=== PATIENT | female | born 1975 | race African-American/Black ===

== ENCOUNTER 2018-07-05 15:18 | Outpatient (CLI) | payer MEDICAID ==
--- NOTE | 2018-07-05 16:17 | MMO ---
BILATERAL SCREENING MAMMOGRAM: HISTORY: A 42-year-old female. Routine screening mammography. COMPARISON: 05/22/2017 TECHNIQUE: CC and MLO views of both breasts were submitted for interpretation. This patient's mammogram is revi ewed with the assistance of computer aided detection. FINDINGS: The breasts are composed of heterogeneously dense fibroglandular tissue, which limits the sensitivity of mammography in the detection of underlying malignancy. Bilaterally, no suspicious dominant mass, architectural distortion, or suspicious calcification. IMPRESSION: BI-RADS Category 1-Negative exam. RECOMMENDATIONS: Annual mammogram. POS: [facility]RI[facility]
== END 2018-07-05 15:19 | disposition home or self-care (01) ==
LOC: SCSMAMMO 15:18
PROVIDERS: ATTEND Nurse Practitioner Women's Health
DX: Z12.31 Encounter for screening mammogram for malignant neoplasm of breast (principal)
CPT/HCPCS: 77067

== ENCOUNTER 2019-07-15 15:15 | Outpatient (CLI) | payer MEDICAID ==
--- NOTE | 2019-07-15 16:00 | MMO ---
Bilateral MAMMO Bilat Screen [facility]. CLINICAL HISTORY: Patient is 43 years old and is seen for screening. The patient has no family history of breast cancer. The patient has no personal history of cancer. VIEWS: The views performed were: bilateral craniocaudal; bilateral mediolateral oblique; and bilateral exaggerated craniocaudal. FILMS COMPARED: The present examination has been compared to a prior imaging study performed at [facility] on 05/22/2017. This study has been interpreted with the assistance of computer-aided detection. MAMMOGRAM FINDINGS: The breasts are heterogeneously dense, which could obscure a lesion on mammography. There are no suspicious masses, suspicious calcifications, or new areas of architectural distortion. IMPRESSION: THERE IS NO MAMMOGRAPHIC EVIDENCE OF MALIGNANCY. A ROUTINE FOLLOW-UP MAMMOGRAM IN 1 YEAR IS RECOMMENDED. ACR BI-RADS Category 1 - Negative MAMMOGRAPHY NOTE: 1. A negative mammogram report should not delay a biopsy if a dominant of clinically suspicious mass is present. 2. Approximately 10% to 15% of breast cancers are not detected by mammography. 3. Adenosis and dense breasts may obscure an underlying neoplasm. Reported by: EDILSON PAIZ MD Electonically Signed: [id number]
== END 2019-07-15 15:16 | disposition home or self-care (01) ==
LOC: BICMAMMO 15:15
PROVIDERS: ATTEND Nurse Practitioner Women's Health
DX: Z12.31 Encounter for screening mammogram for malignant neoplasm of breast (principal)
CPT/HCPCS: 77067